=== PATIENT | female | born 1980 | race Caucasian/White ===

== ENCOUNTER 2020-11-30 12:17 | Emergency (ER) | payer OTHER ==
[2020-11-30 12:37] VITALS: BP 106/68; PULSE 57; TEMP 99.3; BMI 24.9
[2020-11-30] MEDS ORDERED: IBUPROFEN 400 MG TABLET (FP) PO ONE ×2 (12:56→13:07)
== END 2020-11-30 14:36 | disposition home or self-care (01) ==
LOC: FER 12:17
DX: S65.511A Laceration of blood vessel of left index finger, initial encounter (principal); L03.012 Cellulitis of left finger; M79.645 Pain in left finger(s)
CPT/HCPCS: 73130-TC-LT-FY; 99283-25

== ENCOUNTER 2023-10-14 12:07 | Emergency (ER) | payer OTHER ==
[2023-10-14 12:24] VITALS: BP 141/97; PULSE 82; RESP 20; TEMP 97.4; BMI 29.0
[2023-10-14] MEDS ORDERED: MAGNESIUM CITRATE 300 ML BOTTLE ONE (12:43)
[2023-10-14] MEDS: MAGNESIUM CITRATE 300 ML BOTTLE PO ONE (12:50)
[2023-10-14] MEDS: SODIUM PHOSPHATE/NA BIPHOS 133 ML ENEMA PR ONE (12:50)
== END 2023-10-14 14:00 | disposition home or self-care (01) ==
LOC: FER 12:07
DX: K56.41 Fecal impaction (principal); R14.0 Abdominal distension (gaseous); K62.89 Other specified diseases of anus and rectum
CPT/HCPCS: 99283-25